=== PATIENT | female | born 1945 | race African-American/Black ===

== ENCOUNTER 2021-11-29 17:29 | Emergency (ER) | payer OTHER, MEDICARE ==
[~2021-11-29] VITALS: Ht 170.2 cm; Wt 74.8 kg
[2021-11-29 17:35] VITALS: BP 197/75
[2021-11-29] MEDS ORDERED: NAPROSYN500 MG PO (19:20)
[2021-11-29] MEDS ORDERED: DOXYCYCLINE 10100 MG PO (19:20)
== END 2021-11-29 19:41 | disposition home or self-care (01) ==
LOC: ER 17:29
DX: M70.32 Other bursitis of elbow, left elbow (principal); E11.9 Type 2 diabetes mellitus without complications; I10 Essential (primary) hypertension; Z88.5 Allergy status to narcotic agent; Z88.0 Allergy status to penicillin